=== PATIENT | male | born 1965 | race Caucasian/White ===

== ENCOUNTER 2018-12-05 18:50 | Emergency (ER) | payer BC ==
[~2018-12-05] VITALS: Ht 190.5 cm; Wt 90.7 kg
[~2018-12-05 18:50] MED LIST: ACHD5005 PO; ALBU17AE3 IH; ALBU8.5H4 IH; AMLO5TAB2 PO; BUDE6HFA INH; CIPR500S2 PO; CPR500T PO; DULO30CA PO; DULO60CA6 PO; ENLP10T PO; HSCO125 PO; HYDR-3583 PO; HYOS0.1217 PO; IBP600T1 PO; MESA1.2T PO; METR500T PO; MULT1TAB63 PO; NF-ESOM40C PO; PNT40TEC
--- OUTSIDE RECORDS SUMMARY | 2018-12-05 18:55 | XMS REPORT | Continuity of Care Document ---
Author Organization Unknown Address Unknown Allergies There is no data. Medications There is no data. Problems There is no data. Procedures There is no data. Results There is no data. Encounters ACCT No. Visit Date/Time Discharge Status Pt. Type Provider Facility Loc./Unit Complaint [id number] 11/12/2012 14:38:00 11/12/2012 23:59:59 CLS Outpatient
[2018-12-05] MEDS ORDERED: DEXAMETHASONE 10 MG/ML (DECADRON) 1 ML VIAL IM ONE (19:15)
[2018-12-05] MEDS ORDERED: SULF1TAB35 PO (19:19)
--- NOTE | 2018-12-05 19:19 | ED Integumentary General ---
General Chief Complaint: Bite-Animal/Human/Insect Stated Complaint: BEE STING Nursing Triage Note: PT TO ED W/ C/O BEE STING TO RFA ONSET YESTERDAY. SWELLING NOTED TO FOREARM. DENIES IMPROVEMENT W/ OTC MEDS Source: patient Exam Limitations: no limitations History of Present Illness Date Seen by Provider: Dec 05, 2018 Time Seen by Provider: 19:15 Initial Comments To ER by private vehicle with reports of a E sting to the right arm. 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 He states that he felt as though he something sharp was in his arm, he looked at it and thinking maybe a cockleburr was in his arm, he saw something black sticking out of his arm brushed it off. There is in hindsight he believes that to him within the stinger, a few minutes later he saw M.D. oozing around the cabin of the train. About 2-3 minutes after the sensation of pain he developed some redness and swelling at the site. He took 2 Benadryl last night, 2 Benadryl again this morning at 9 AM. Denies much improvement. He's been using cold packs as well. Timing/Duration: just prior to arrival Severity: moderate Possible Cause: insect sting Associated Symptoms: rash Allergies and Home Medications Allergies Coded Allergies: Erythromycin Base (Unverified Allergy, Unknown, 02/23/07) Penicillins (Unverified Allergy, Unknown, 02/23/07) Tetanus (Unverified Allergy, Unknown, 02/23/07) Home Medications Albuterol Sulfate 8.5 Gm Hfa.aer.ad, 1 PUFF IH PRN, (Reported) Amlodipine Besylate 5 Mg Tablet, 5 MG PO DAILY, (Reported) Budesonide/Formoterol Fumarate 10.2 Gm Hfa.aer.ad, 2 PUFF INH BID, (Reported) Duloxetine Hcl 60 Mg Capsule., 60 MG PO DAILY, (Reported) Enalapril Maleate 10 Mg Tab, 20 MG PO DAILY, (Reported) Esomeprazole Mag Trihydrate 40 Mg Capsule., 40 MG PO DAILY, (Reported) Sulfamethoxazole/Trimethoprim 1 Each Tablet, 1 EACH PO BID Prescribed by: LIV QUINTERO on 12/05/181918 Patient Home Medication List Home Medication List Reviewed: Yes Review of Systems Review of Systems Constitutional: see HPI EENTM: see HPI Respiratory: no symptoms reported Cardiovascular: no symptoms reported Genitourinary: no symptoms reported Musculoskeletal: no symptoms reported Skin: see HPI Psychiatric/Neurological: No Symptoms Reported Endocrine: No Symptoms Reported Hematologic/Lymphatic: No Symptoms Reported Past Jxgalii-Mykyut-Hqvfux Hx Patient Social History Alcohol Use: Denies Use Recreational Drug Use: No Smoking Status: Never a Smoker Recent Foreign Travel: No Contact w/Someone Who Travel: No Recent Infectious Disease Expo: No Recent Hopitalizations: Yes Past Medical History Surgeries: Yes (HIATAL HERNIA REPAIR) Gallbladder Respiratory: Yes Cardiac: Yes Neurological: Yes Reproductive Disorders: No Sexually Transmitted Disease: No Gastrointestinal: No Musculoskeletal: No Endocrine: No Psychosocial: Yes Blood Disorders: No Physical Exam Vital Signs Vital Signs - First Documented 12/05/18 19:03 Temp 98.1 Pulse 79 Resp 18 B/P (MAP) 136/90 (105) Pulse Ox 98 O2 Delivery Room Air Capillary Refill : Less Than 3 Seconds General Appearance: WD/WN, no apparent distress HEENT: PERRL/EOMI, normal ENT inspection Respiratory: no respiratory distress, no accessory muscle use Neurologic/Psychiatric: alert, normal mood/affect, oriented x 3 Skin: normal color, warm/dry Skin Problem Location: upper extremities (to the upper extremity volar aspect left forearm there is an approximately 10 x 15 cm area of well demarcated erythema with a central punctum consistent with the alleged bee sting. No lymphangitis. No fluctuance.) Progress/Results/Core Measures Results/Orders My Orders Orders - LIV QUINTERO APRN Dexamethasone Injection (Decadron Inject (12/05/18 19:15) Vital Signs/I&O 12/05/18 19:03 Temp 98.1 Pulse 79 Resp 18 B/P (MAP) 136/90 (105) Pulse Ox 98 O2 Delivery Room Air Blood Pressure Mean: 105 Departure Impression Primary Impression: Bee sting Qualified Codes: T63.441A - Toxic effect of venom of bees, accidental (unintentional), initial encounter Disposition: HOME, SELF-CARE Condition: Stable Departure-Patient Inst. Decision time for Depature: 19:18 Referrals: JENNIFER GONZALES MD (PCP/Family) Primary Care Physician Patient Instructions: Insect Bites and Stings (DC) Add. Discharge Instructions: 1. Continue to use Benadryl one tablet every 4-6 hours. Cool compresses to the area tonight, you were given one dose of Decadron 10 mg intramuscularly in the emergency room. You can start the Bactrim antibiotics tomorrow if no improvement with the steroid. All discharge instructions reviewed with patient and/or family. Voiced understanding. Scripts Sulfamethoxazole/Trimethoprim (Bactrim Ds Tablet) 1 Each Tablet 1 EACH PO BID, #14 TAB Prov: LIV QUINTERO APRN 12/05/18 LIV QUINTERO APRN Dec 05, 2018 19:19
[2018-12-05 19:30] VITALS: BP 0/0
--- NOTE | 2018-12-05 19:30 | NUR ---
PT DISCHARGED TO HOME. PT VOICED HE MIGHT NOT BE ABLE TO [employer] RX HE MAY HAVE TO RETURN TO WORK IN THE MIDDLE OF THE NIGHT. PER AYDEE BAXTER, RX FOR ABX ONLY NECESSARY IF PT NOTES SIGNS OF INFECTION TO ARM. PT VOICED UNDERSTANDING. PT PROVIDED W/ NAME ET DOSAGE OF MEDICATION ET A NOTE ALLOWING PT TO RETURN TO WORK TOMORROW. UNDERSTANDING VOICED, NO OTHER QUESTIONS.
== END 2018-12-05 19:30 | disposition home or self-care (01) ==
LOC: EDUNIT# 18:50 → ER 18:51
DX: S50.861A Insect bite (nonvenomous) of right forearm, initial encounter (principal); Z88.1 Allergy status to other antibiotic agents; Z88.0 Allergy status to penicillin; Z88.7 Allergy status to serum and vaccine; Z98.890 Other specified postprocedural states; W57.XXXA Bitten or stung by nonvenomous insect and other nonvenomous arthropods, initial encounter; Y92.59 Other trade areas as the place of occurrence of the external cause; Y99.0 Civilian activity done for income or pay
CPT/HCPCS: 96372; 99284

== ENCOUNTER 2018-12-12 19:28 | Emergency (ER) | payer BC ==
[~2018-12-12] VITALS: Ht 190.5 cm; Wt 90.8 kg
[~2018-12-12 19:28] MED LIST changes: +SULF1TAB35 PO
[2018-12-12] MEDS ORDERED: FAMOTIDINE 20 MG (PEPCID) TABLET PO ONE (20:00)
[2018-12-12] MEDS ORDERED: diphenhydrAMINE 25 MG TAB (BENADRYL) PO ONE (20:00)
[2018-12-12] MEDS ORDERED: predniSONE 20 MG TAB PO ONE (20:00)
[2018-12-12] MEDS ORDERED: PRD20T PO (20:22)
[2018-12-12] MEDS ORDERED: LORA10TA7 PO (20:22)
[2018-12-12] MEDS ORDERED: FAMO-119 PO (20:22)
--- NOTE | 2018-12-12 20:24 | ED Integumentary General ---
General Chief Complaint: Bite-Animal/Human/Insect Stated Complaint: WASP STING Nursing Triage Note: stung by a wasp on left thum b Source: patient Exam Limitations: no limitations History of Present Illness Date Seen by Provider: Dec 12, 2018 Allergies and Home Medications Allergies Coded Allergies: Erythromycin Base (Unverified Allergy, Unknown, 02/23/07) Penicillins (Unverified Allergy, Unknown, 02/23/07) Tetanus (Unverified Allergy, Unknown, 02/23/07) Home Medications Albuterol Sulfate 8.5 Gm Hfa.aer.ad, 1 PUFF IH PRN, (Reported) Amlodipine Besylate 5 Mg Tablet, 5 MG PO DAILY, (Reported) Budesonide/Formoterol Fumarate 10.2 Gm Hfa.aer.ad, 2 PUFF INH BID, (Reported) Duloxetine Hcl 60 Mg Capsule.dr, 60 MG PO DAILY, (Reported) Enalapril Maleate 10 Mg Tab, 20 MG PO DAILY, (Reported) Esomeprazole Mag Trihydrate 40 Mg Capsule.dr, 40 MG PO DAILY, (Reported) Sulfamethoxazole/Trimethoprim 1 Each Tablet, 1 EACH PO BID Prescribed by: LIV QUINTERO on 12/05/181918 Past Zniqoti-Ofwixa-Qnjrwf Hx Patient Social History Alcohol Use: Denies Use Recreational Drug Use: No Smoking Status: Never a Smoker 2nd Hand Smoke Exposure: No Recent Foreign Travel: No Contact w/Someone Who Travel: No Recent Infectious Disease Expo: No Recent Hopitalizations: No Physical Abuse: No Sexual Abuse: No Mistreated: No Fear: No Immunizations Up To Date Tetanus Booster (TDap): Unknown Past Medical History Surgeries: Yes (HIATAL HERNIA REPAIR) Gallbladder Respiratory: Yes Asthma Cardiac: No Neurological: No Reproductive Disorders: No Sexually Transmitted Disease: No Genitourinary: No Gastrointestinal: Yes Hiatal Hernia Musculoskeletal: No Endocrine: No HEENT: No Cancer: No Psychosocial: No Integumentary: No Blood Disorders: No Physical Exam Vital Signs Vital Signs - First Documented 12/12/18 19:38 Temp 96.7 Pulse 103 Resp 20 B/P (MAP) 135/106 (116) Pulse Ox 96 Capillary Refill : Less Than 3 Seconds Progress/Results/Core Measures Results/Orders My Orders Orders - JOCELYN OLMSTEAD Prednisone Tablet (Deltasone Tablet) (12/12/18 20:00) Diphenhydramine Tablet (Benadryl Tablet) (12/12/18 20:00) Famotidine Tablet (Pepcid Tablet) (12/12/18 20:00) Medications Given in ED Current Medications Medications Dose Ordered Sig/Yordy Route Start Time Stop Time Status Last Admin Dose Admin Diphenhydramine HCl 25 mg ONCE ONCE PO 12/12/18 20:00 12/12/18 20:01 DC 12/12/18 20:00 25 MG Famotidine 20 mg ONCE ONCE PO 12/12/18 20:00 12/12/18 20:01 DC 12/12/18 20:00 20 MG Prednisone 40 mg ONCE ONCE PO 12/12/18 20:00 12/12/18 20:01 DC 12/12/18 20:00 40 MG Vital Signs/I&O 12/12/18 19:38 Temp 96.7 Pulse 103 Resp 20 B/P (MAP) 135/106 (116) Pulse Ox 96 Blood Pressure Mean: 116 Departure Impression Primary Impression: Bee sting Disposition: HOME, SELF-CARE Condition: Improved Departure-Patient Inst. Decision time for Depature: 20:21 Referrals: JENNIFER GONZALES MD (PCP/Family) Primary Care Physician Patient Instructions: Insect Bites and Stings (DC) Add. Discharge Instructions: All discharge instructions reviewed with patient and/or family. Voiced understanding. Medications as instructed. Benadryl [id number] as directed for breakthrough itching or swelling. Elevate the left hand on pillows. Ice pack as needed. Follow-up with her family practitioner for recheck as outpatient if needed. Return to the emergency department for worsened symptoms, difficulty breathing, difficulty swallowing, headache, vomiting, swelling of the face/throat/tongue, or any other concerns. Scripts Loratadine (Loratadine) 10 Mg Tablet 10 MG PO DAILY, #10 TAB 0 Refills Prov: JOCELYN OLMSTEAD 12/12/18 Famotidine (Pepcid) 20 Mg Tablet 20 MG PO BID, #20 TAB 0 Refills Prov: JOCELYN OLMSTEAD 12/12/18 Prednisone (Prednisone) 20 Mg Tab 40 MG PO DAILY for 4 Days, #8 TAB 0 Refills Prov: JOCELYN OLMSTEAD 12/12/18 JOCELYN OLMSTEAD Dec 12, 2018 20:24
[2018-12-12 20:35] VITALS: BP 133/97
--- OUTSIDE RECORDS SUMMARY | 2018-12-12 21:52 | XMS REPORT | Continuity of Care Document ---
Author Organization Unknown Address Unknown Phone Unavailable Allergies Active Description Code Type Severity Reaction Onset Reported/Identified Relationship to Patient Clinical Status Yes erythromycin base [id number] Drug Allergy Unknown N/A 02/23/2007 Yes Penicillins [id number] Drug Allergy Unknown N/A 02/23/2007 Yes Tetanus Vaccines and Toxoid [id number] Drug Allergy Unknown N/A 02/23/2007 Medications There is no data. Problems Date Dx Coded Attending Type Code Diagnosis Diagnosed By 12/12/2018 LIV QUINTERO APRN Ot S50.861A INSECT BITE (NONVENOMOUS) OF RIGHT FOREA 12/12/2018 LIV QUINTERO APRN Ot W57.XXXA BIT/STUNG BY NONVENOM INSECT OTH NONVE 12/12/2018 LIV QUINTERO APRN Ot Y92.[address] 12/12/2018 LIV QUINTERO APRN Ot Y99.0 CIVILIAN ACTIVITY DONE FOR INCOME OR PAY 12/12/2018 LIV QUINTERO APRN Ot Z88.0 ALLERGY STATUS TO PENICILLIN 12/12/2018 LIV QUINTERO APRN Ot Z88.1 ALLERGY STATUS TO OTHER ANTIBIOTIC AGENT 12/12/2018 LIV QUINTERO APRN Ot Z88.7 ALLERGY STATUS TO SERUM AND VACCINE STAT 12/12/2018 LIV QUINTERO APRN Ot Z98.890 OTHER SPECIFIED POSTPROCEDURAL STATES Procedures There is no data. Results There is no data. Encounters ACCT No. Visit Date/Time Discharge Status Pt. Type Provider Facility Loc./Unit Complaint [id number] 12/05/2018 18:51:00 12/05/2018 19:30:00 DIS Outpatient LIV QUINTERO APRN [facility] ER BEE STING [id number] 11/12/2012 14:38:00 11/12/2012 23:59:59 CLS Outpatient
== END 2018-12-12 20:38 | disposition home or self-care (01) ==
LOC: EDUNIT# 19:28 → ER 19:30
DX: T63.441A Toxic effect of venom of bees, accidental (unintentional), initial encounter (principal); J45.909 Unspecified asthma, uncomplicated; Z88.1 Allergy status to other antibiotic agents; Z88.0 Allergy status to penicillin; Z88.7 Allergy status to serum and vaccine; Z98.890 Other specified postprocedural states
CPT/HCPCS: 99283

== ENCOUNTER → 2022-06-26 | Outpatient (CLI) | payer BC ==
[~2022-06-26] MED LIST changes: +FAMO-119 PO; +LORA10TA7 PO; +PRD20T PO; -SULF1TAB35 PO; +SULF1TAB38 PO
--- NOTE | 2022-06-26 11:07 | Diagnostic Imaging Report ---
INDICATION: Pain COMPARISON: None available TECHNIQUE: 3 radiographs of cervical spine dated 06/26/2022. FINDINGS: 4 mm anterolisthesis of C7 on T1. 2 mm retrolisthesis of C5 on C6. Scattered endplate degenerative changes are present, particularly at C5-C7. No evidence of a recent vertebral body compression deformity. Severe disc space height loss at C5/C6 and C6/C7 with moderate disc space height loss at C3/C4. Multilevel mild anterior osteophyte formation. Visualized portions of the dens unremarkable. The lateral masses are well seated. Chronic bilateral posterior rib fractures. No acute fracture or dislocation. No destructive osseous process. Calcifications overlying the expected location of the bilateral carotid bulbs. Prevertebral soft tissues are otherwise unremarkable. IMPRESSION: No acute osseous abnormality with moderate multilevel degenerative changes as described above, greatest at C5/C6 through C7/T1. Dictated by: Dictated on workstation # [id number]
--- NOTE | 2022-06-26 13:21 | Diagnostic Imaging Report ---
Indication: Back pain. AP and lateral views of the lumbar spine are obtained. The lumbar vertebrae show dextroscoliotic changes. There is disc space narrowing most prominent at L4-L5, and L2-L3 as well as L1-L2. There is multilevel osteophyte formation throughout the lumbar levels. There is diffuse facet degenerative change. IMPRESSION: Diffuse degenerative changes in the lumbar spine as well as dextroscoliotic change. No definite acute abnormality. Dictated by: Dictated on workstation # [id number]
== END ==
LOC: RAD 08:54
PROVIDERS: ATTEND Nurse Practitioner Family
DX: M47.813 Spondylosis without myelopathy or radiculopathy, cervicothoracic region (principal); M47.815 Spondylosis without myelopathy or radiculopathy, thoracolumbar region; M41.86 Other forms of scoliosis, lumbar region
CPT/HCPCS: 72040; 72100

== ENCOUNTER → 2022-07-08 | Outpatient (CLI) | payer BC ==
[~2022-07-08] MED LIST changes: +HOLD METFORMIN - RECEIVED CONTRAST 20 ML VIAL IV SCH; +IOHEXOL 350 MG/ML 100 ML (OMNIPAQUE 350) VIAL IV ONE; +NS 100 ML (IVPB) BAG IV ONE
--- NOTE | 2022-07-08 14:49 | Diagnostic Imaging Report ---
CT ABDOMEN/PELVIS W TECHNIQUE: Multiple contiguous axial images were obtained through the abdomen and pelvis after administration of intravenous contrast. All CT scans use one or more of the following dose optimizing techniques: automated exposure control, MA and/or KvP adjustment based on patient size and exam type or iterative reconstruction. INDICATION: Left upper quadrant pain COMPARISON: None available. FINDINGS: Lower chest: The lung bases are clear. No pericardial or pleural effusion. Peritoneum: No free intraperitoneal air or fluid. Liver and biliary system: The liver is normal. Cholecystectomy. No biliary duct dilatation. Spleen and Pancreas: Spleen is normal in size measuring 11 cm and has no focal abnormality. The pancreas enhances normally without mass lesion or peripancreatic inflammatory changes. Adrenals: Normal. tract: Mild right hydronephrosis due to a partially obstructing 2 mm stone at the right UVJ. Both kidneys enhance normally. No left renal or ureteral stones. Urinary bladder is normally filled without wall thickening. GI tract: Stomach is filled with air and has normal thickening. No bowel obstruction. Diffuse colonic diverticulosis without diverticulitis. Appendix is normal. Vasculature and Lymph nodes: Normal caliber aorta. No abdominal or pelvic lymphadenopathy. Musculoskeletal: No concerning osseous lesion. IMPRESSION: 1. Diffuse colonic diverticulosis without diverticulitis. 2. The spleen is normal in appearance. 3. Mild right hydronephrosis due to a partially obstructing 2 mm stone at the right UVJ. Report was called to provided phone number at time of dictation, but there is no answer. Dictated by: Dictated on workstation # [id number]
== END ==
LOC: RAD 13:58
PROVIDERS: ATTEND Nurse Practitioner Family
DX: N13.2 Hydronephrosis with renal and ureteral calculous obstruction (principal); K57.30 Diverticulosis of large intestine without perforation or abscess without bleeding; K92.1 Melena; E29.1 Testicular hypofunction; F32.9 Major depressive disorder, single episode, unspecified; R10.11 Right upper quadrant pain; R10.12 Left upper quadrant pain
CPT/HCPCS: 74177

== ENCOUNTER → 2022-08-28 | Outpatient (CLI) | payer BC ==
[~2022-08-28] MED LIST changes: -HOLD METFORMIN - RECEIVED CONTRAST 20 ML VIAL IV SCH; -IOHEXOL 350 MG/ML 100 ML (OMNIPAQUE 350) VIAL IV ONE; -NS 100 ML (IVPB) BAG IV ONE
--- NOTE | 2022-08-28 14:22 | Diagnostic Imaging Report ---
PROCEDURE: MR imaging cervical spine without contrast. TECHNIQUE: Multiplanar, multisequence MR imaging of the cervical spine was performed without contrast. INDICATION: Chronic neck pain with no known discrete injury, No priors for direct comparison however correlated with radiographs dated 06/26/2022. Grade 1 degenerative retrolisthesis C3 on 4 and C5 on C6 stable from prior. No marrow edema or acute marrow signal pathology. No bony destructive process fracture or bone contusion. Cervical spinal cord has a normal volume morphology and normal signal intensity. CSF circumscribes the cord at each vertebral body and disc space level. C2-C3 level showed no canal or foraminal stenosis. C3-C4: Uncovertebral joint spurring and endplate osteophytes efface the ventral thecal sac but very mild canal stenosis is present. There is moderate left greater than right biforaminal stenosis. C4-C5: Mild endplate osteophytes slightly indent the ventral thecal sac but results in no substantial canal stenosis. There is a very mild degree of biforaminal narrowing. C5-C6: Uncovertebral joint spurring and endplate osteophytes result in moderate to severe left and [id number] right foraminal narrowing with no significant canal stenosis. C6-C7: Osteophyte disc material and uncovertebral joint spurring are asymmetric greater right. There is severe right and moderate to severe left foraminal narrowing with mild central canal stenosis. C7-T1: This level and disc unremarkable. There is no stenosis. IMPRESSION: 1. Multilevel spondylosis and facet arthrosis with multilevel foraminal narrowing detailed level by level above. Normal cord. No acute bony pathology. Multilevel grade 1 degenerative listheses with no acute malalignment. Dictated by: Dictated on workstation # [id number]
== END ==
LOC: RAD 13:15
PROVIDERS: ATTEND Physician Assistant
DX: M47.812 Spondylosis without myelopathy or radiculopathy, cervical region (principal); M48.02 Spinal stenosis, cervical region; M54.2 Cervicalgia
CPT/HCPCS: 72141